=== PATIENT | female | born 1960 | race Caucasian/White ===

== ENCOUNTER 2018-05-15 13:17 | Emergency (ER) | payer OTHER ==
[~2018-05-15] VITALS: Ht 162.6 cm; Wt 81.3 kg
[~2018-05-15 13:17] MED LIST: EFFEXOR; NOHOMEMEDS; NORCO 5/3251 TABLET PO; VENLAFAXINE HCL75 M3 PO
[2018-05-15 13:51] LABS: APPEARANCE SL.HAZY ((CLEAR)); BILIRUBIN NEGATIVE; BLOOD NEGATIVE; COLOR AMBER ((YELLOW)); GLUCOSE (STRIP) NEGATIVE; KETONES 5; LEUKOCYTES MODERATE; NITRITE NEGATIVE; PROTEIN (STRIP) 30; SPECIFIC GRAVITY 1.024 (1.000-1.030)
[2018-05-15 13:54] LABS: BACTERIA 1+ /HPF; CALCIUM OXALATE CRYSTALS 1+ /HPF; EPITHELIAL CELLS 1+ /HPF; MUCUS 3+ /LPF; UCUL ADDED? YES; WHITE BLOOD CELLS 40-50 /HPF (0-5)
[2018-05-15 14:07] LABS: HEMATOCRIT 40.9 % (36.0-46.0); HEMOGLOBIN 14.3 G/DL (11.9-15.5); MCV 85.9 FL (83-99); PLATELET COUNT 213 K/uL (156-360); RBC DIS.WIDTH-SD 37.9 % (39-53); RED BLOOD COUNT 4.76 M/uL (3.80-5.20); WHITE BLOOD COUNT 8.7 K/uL (4.1-10.2)
[2018-05-15 14:12] LABS: ALBUMIN 3.8 g/dL (3.2-4.8); CHLORIDE 104 mEq/L (99-109); POTASSIUM 3.6 mEq/L (3.7-5.4); SODIUM 139 mEq/L (136-147)
[2018-05-15 14:13] LABS: GLUCOSE 114 mg/dL (70-99); TOTAL PROTEIN 7.8 g/dL (6.4-8.3)
[2018-05-15 14:15] LABS: TOTAL BILIRUBIN 0.7 mg/dL (0.0-1.0)
[2018-05-15 14:17] LABS: ALKALINE PHOSPHATASE 283 IU/L (3-129); CREATININE 0.8 mg/dL (0.6-1.3); GFR ESTIMATE (CALCULATED) > 59 mL/min/
[2018-05-15 14:18] LABS: UREA NITROGEN (BUN) 9 mg/dL (9-23)
[2018-05-15 14:19] LABS: AST (GOT) 48 IU/L (2-34)
[2018-05-15 14:20] LABS: ALT (GPT) 66 IU/L (3-49)
[2018-05-15 14:31] LABS: LIPASE 42 U/L (1.0-51.0)
[2018-05-15] MEDS ORDERED: BENTYL20 MG PO (15:25)
[2018-05-15] MEDS ORDERED: KEFLEX500 MG PO (15:27)
[2018-05-15 16:23] VITALS: BP 113/76
== END 2018-05-15 16:23 | disposition home or self-care (01) ==
LOC: EME 13:17
DX: R10.11 Right upper quadrant pain (principal); N39.0 Urinary tract infection, site not specified; R79.89 Other specified abnormal findings of blood chemistry; I10 Essential (primary) hypertension; F41.9 Anxiety disorder, unspecified; F32.9 Major depressive disorder, single episode, unspecified; Z87.891 Personal history of nicotine dependence
CPT/HCPCS: 74018; 76705; 80053; 81003; 83690; 85027; 87086; 99281; 99285; J1885